=== PATIENT | female | born 1995 | race Caucasian/White ===

== ENCOUNTER 2017-05-26 11:58 | Emergency (ER) | payer SELFPAY ==
[~2017-05-26] VITALS: Ht 172.7 cm; Wt 81.6 kg
[~2017-05-26 11:58] MED LIST: Depo-Provera
[2017-05-26 12:27] LABS: BILIRUBIN,URINE NEGATIVE (NEGATIVE); KETONES,URINE NEGATIVE (NEGATIVE); LEUKOCYTE ESTERASE ,URINE NEGATIVE (NEGATIVE); NITRITE,URINE NEGATIVE (NEGATIVE); PH,URINE 6.5 (5-9); PROTEIN,URINE NEGATIVE (NEGATIVE); UROBILINOGEN,URINE NORMAL (NORMAL)
[2017-05-26 12:43] LABS: WBC,URINE 0-2 /HPF
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
[2017-05-26 13:21] VITALS: BP 121/75
== END 2017-05-26 13:21 | disposition home or self-care (01) ==
LOC: EDUNIT# 11:58 → ER 12:00
DX: S09.90XA Unspecified injury of head, initial encounter (principal); Z90.89 Acquired absence of other organs; V48.5XXA Car driver injured in noncollision transport accident in traffic accident, initial encounter
CPT/HCPCS: 70450; 72125; 81000; 84703; 99283